=== PATIENT | female | born 1955 | race Caucasian/White ===

== ENCOUNTER 2018-09-04 02:42 | Outpatient (RCR) | payer MEDICAID, SELFPAY ==
[2018-08-28 09:56] LABS: Abs Immature Grans 0.01 k/cumm (0.0-0.09); Absolute Basophil Count 0.01 k/cumm (0.0-0.2); Absolute Eosinophil Count 0.06 k/cumm (0.0-0.7); Absolute Lymphocyte Count 1.54 k/cumm (1.2-3.4); Absolute Monocyte Count 0.21 k/cumm (0.11-0.7); Absolute Neutrophil Count 2.28 k/cumm (1.2-6.7); Basophils % 0.2; Eosinophils % 1.5; HCT 40.1 % (36.0-46.0); HGB 13.5 g/dL (12.0-15.5); Immature Grans % 0.2; Lymphocytes % 37.5; Mean Corp. HGB Concentration 33.7 g/dL (32.0-36.0); Mean Corpuscular Hemoglobin 26.6 pg (27.0-33.0); Mean Corpuscular Volume 79.1 fL (80-95); Mean Platelet Volume 11.6 fL (8.0-11.0); Monocytes % 5.1; Neutrophils % 55.5; Platelet Count 117 x1000/uL (130-400); RBC 5.07 m/cumm (4.00-5.20); RBC Distribution Width 13.9 % (11.7-14.6); White Blood Cell Count 4.11 k/cumm (4.4-10.8)
[2018-08-28 10:13] LABS: ALT 31 U/L (12-78); AST 26 U/L (15-37); Alkaline Phosphatase 160 U/L (46-116); BUN 5 mg/dL (7-18); Bilirubin, Total 0.6 mg/dL (0.2-1.0); CREATININE 0.72 mg/dL (0.55-1.02); Calcium 8.9 mg/dL (8.5-10.1); Chloride 99 mmol/L (98-107); Glucose 164 mg/dL (70-100); Potassium 4.2 mmol/L (3.5-5.1); Sodium 134 mmol/L (136-145); Total Protein 7.4 g/dL (6.4-8.2)
== END 2018-09-08 23:59 | disposition home or self-care (01) ==
LOC: INF 02:42
PROVIDERS: Visit Provider Internal Medicine Hospice and Palliative Medicine
DX: C34.91 Malignant neoplasm of unspecified part of right bronchus or lung (principal)
CPT/HCPCS: 36415; 80053; 85025

== ENCOUNTER 2018-09-11 09:19 | Outpatient (CLI) | payer MEDICAID, SELFPAY ==
[2018-09-11 09:49] LABS: Abs Immature Grans 0.02 k/cumm (0.0-0.09); Absolute Basophil Count 0.03 k/cumm (0.0-0.2); Absolute Eosinophil Count 0.03 k/cumm (0.0-0.7); Absolute Lymphocyte Count 1.45 k/cumm (1.2-3.4); Absolute Monocyte Count 0.46 k/cumm (0.11-0.7); Absolute Neutrophil Count 3.02 k/cumm (1.2-6.7); Basophils % 0.6; Eosinophils % 0.6; HCT 37.8 % (36.0-46.0); HGB 12.4 g/dL (12.0-15.5); Immature Grans % 0.4; Lymphocytes % 28.9; Mean Corp. HGB Concentration 32.8 g/dL (32.0-36.0); Mean Corpuscular Volume 82.2 fL (80-95); Mean Platelet Volume 10.4 fL (8.0-11.0); Monocytes % 9.2; Neutrophils % 60.3; RBC Distribution Width 16.9 % (11.7-14.6); White Blood Cell Count 5.01 k/cumm (4.4-10.8)
[2018-09-11 10:00] LABS: ALT 17 U/L (12-78); AST 26 U/L (15-37); Albumin 2.5 g/dL (3.4-5.0); Alkaline Phosphatase 112 U/L (46-116); Anion Gap 6.5 mmol/L (3-11); BUN 3 mg/dL (7-18); Bilirubin, Total 0.3 mg/dL (0.2-1.0); CO2 28.5 mmol/L (21.0-32.0); CREATININE 0.74 mg/dL (0.55-1.02); Calcium 9.1 mg/dL (8.5-10.1); Chloride 103 mmol/L (98-107); Glucose 196 mg/dL (70-100); Potassium 4.1 mmol/L (3.5-5.1); Sodium 138 mmol/L (136-145); Total Protein 6.6 g/dL (6.4-8.2)
[2018-09-11 10:15] LABS: Platelet Count 96 x1000/uL (130-400)
== END 2018-09-11 09:39 ==
PROVIDERS: PCP Family Medicine; Visit Provider Internal Medicine Hospice and Palliative Medicine
DX: C34.91 Malignant neoplasm of unspecified part of right bronchus or lung (principal)
CPT/HCPCS: 36415; 80053; 85025

== ENCOUNTER 2018-09-18 10:54 | Outpatient (CLI) | payer MEDICAID, SELFPAY ==
[2018-09-18 11:36] LABS: Abs Immature Grans 0.01 k/cumm (0.0-0.09); Absolute Basophil Count 0.02 k/cumm (0.0-0.2); Absolute Eosinophil Count 0.07 k/cumm (0.0-0.7); Absolute Lymphocyte Count 1.51 k/cumm (1.2-3.4); Absolute Monocyte Count 0.35 k/cumm (0.11-0.7); Absolute Neutrophil Count 2.99 k/cumm (1.2-6.7); Basophils % 0.4; Eosinophils % 1.4; HCT 38.6 % (36.0-46.0); Immature Grans % 0.2; Lymphocytes % 30.5; Mean Corp. HGB Concentration 33.7 g/dL (32.0-36.0); Mean Corpuscular Hemoglobin 27.7 pg (27.0-33.0); Mean Corpuscular Volume 82.3 fL (80-95); Monocytes % 7.1; Neutrophils % 60.4; Platelet Count 184 x1000/uL (130-400); RBC 4.69 m/cumm (4.00-5.20); RBC Distribution Width 17.9 % (11.7-14.6); White Blood Cell Count 4.95 k/cumm (4.4-10.8)
[2018-09-18 12:01] LABS: ALT 29 U/L (12-78); AST 51 U/L (15-37); Albumin 2.8 g/dL (3.4-5.0); Alkaline Phosphatase 104 U/L (46-116); Anion Gap 7.5 mmol/L (3-11); BUN 4 mg/dL (7-18); Bilirubin, Total 0.3 mg/dL (0.2-1.0); CO2 28.5 mmol/L (21.0-32.0); CREATININE 0.66 mg/dL (0.55-1.02); Calcium 9.5 mg/dL (8.5-10.1); Chloride 99 mmol/L (98-107); Glucose 200 mg/dL (70-100); LDH 229 U/L (81-234); Potassium 4.1 mmol/L (3.5-5.1); Sodium 135 mmol/L (136-145); Total Protein 7.8 g/dL (6.4-8.2)
== END 2018-09-18 11:14 ==
PROVIDERS: PCP Family Medicine; Visit Provider Nurse Practitioner Adult Health
DX: C34.91 Malignant neoplasm of unspecified part of right bronchus or lung (principal)
CPT/HCPCS: 36415; 80053; 83615; 85025

== ENCOUNTER 2018-10-02 00:50 | Outpatient (RCR) | payer MEDICAID, SELFPAY | END 2018-10-09 23:59 | disposition home or self-care (01) | LOC: INF 00:50 | PROVIDERS: Visit Provider Internal Medicine Hospice and Palliative Medicine | DX: R69 Illness, unspecified (principal) ==

== ENCOUNTER 2018-10-09 10:38 | Outpatient (CLI) | payer MEDICAID, SELFPAY ==
[2018-10-09 11:08] LABS: Abs Immature Grans 0.01 k/cumm (0.0-0.09); Absolute Basophil Count 0.02 k/cumm (0.0-0.2); Absolute Eosinophil Count 0.13 k/cumm (0.0-0.7); Absolute Lymphocyte Count 1.89 k/cumm (1.2-3.4); Absolute Monocyte Count 0.42 k/cumm (0.11-0.7); Absolute Neutrophil Count 4.42 k/cumm (1.2-6.7); Basophils % 0.3; Eosinophils % 1.9; HCT 39.8 % (36.0-46.0); HGB 13.7 g/dL (12.0-15.5); Immature Grans % 0.1; Lymphocytes % 27.4; Mean Corp. HGB Concentration 34.4 g/dL (32.0-36.0); Mean Corpuscular Hemoglobin 28.4 pg (27.0-33.0); Mean Corpuscular Volume 82.6 fL (80-95); Mean Platelet Volume 11.5 fL (8.0-11.0); Monocytes % 6.1; Neutrophils % 64.2; Platelet Count 150 x1000/uL (130-400); RBC 4.82 m/cumm (4.00-5.20); RBC Distribution Width 17.5 % (11.7-14.6); White Blood Cell Count 6.89 k/cumm (4.4-10.8)
[2018-10-09 11:13] LABS: ALT 25 U/L (12-78); AST 24 U/L (15-37); Albumin 2.9 g/dL (3.4-5.0); Alkaline Phosphatase 142 U/L (46-116); Anion Gap 9.1 mmol/L (3-11); BUN 6 mg/dL (7-18); Bilirubin, Total 0.3 mg/dL (0.2-1.0); CO2 25.9 mmol/L (21.0-32.0); CREATININE 0.64 mg/dL (0.55-1.02); Calcium 9.4 mg/dL (8.5-10.1); Chloride 101 mmol/L (98-107); Glucose 164 mg/dL (70-100); Sodium 136 mmol/L (136-145); Total Protein 7.7 g/dL (6.4-8.2)
== END 2018-10-09 10:58 ==
PROVIDERS: Internal Medicine Hospice and Palliative Medicine; PCP Family Medicine; Visit Provider Nurse Practitioner Adult Health
DX: C34.91 Malignant neoplasm of unspecified part of right bronchus or lung (principal)
CPT/HCPCS: 36415; 80053; 85025

== ENCOUNTER 2018-10-23 10:36 | Outpatient (CLI) | payer MEDICAID, SELFPAY ==
[2018-10-23 10:59] LABS: Abs Immature Grans 0.01 k/cumm (0.0-0.09); Absolute Basophil Count 0.01 k/cumm (0.0-0.2); Absolute Eosinophil Count 0.04 k/cumm (0.0-0.7); Absolute Lymphocyte Count 1.59 k/cumm (1.2-3.4); Absolute Monocyte Count 0.49 k/cumm (0.11-0.7); Basophils % 0.2; Eosinophils % 0.9; HCT 36.2 % (36.0-46.0); HGB 12.3 g/dL (12.0-15.5); Immature Grans % 0.2; Lymphocytes % 35.8; Mean Corpuscular Hemoglobin 28.2 pg (27.0-33.0); Neutrophils % 51.9; Platelet Count 153 x1000/uL (130-400); RBC 4.36 m/cumm (4.00-5.20); RBC Distribution Width 16.7 % (11.7-14.6); White Blood Cell Count 4.44 k/cumm (4.4-10.8)
[2018-10-23 11:15] LABS: ALT 28 U/L (12-78); AST 16 U/L (15-37); Albumin 2.7 g/dL (3.4-5.0); Alkaline Phosphatase 171 U/L (46-116); Anion Gap 10.1 mmol/L (3-11); BUN 5 mg/dL (7-18); Bilirubin, Total 0.3 mg/dL (0.2-1.0); CO2 27.9 mmol/L (21.0-32.0); CREATININE 0.85 mg/dL (0.55-1.02); Calcium 9.3 mg/dL (8.5-10.1); Chloride 99 mmol/L (98-107); Glucose 177 mg/dL (70-100); Potassium 3.5 mmol/L (3.5-5.1); Sodium 137 mmol/L (136-145); Total Protein 7.3 g/dL (6.4-8.2)
== END 2018-10-23 10:56 ==
PROVIDERS: PCP Family Medicine; Visit Provider Internal Medicine Hospice and Palliative Medicine
DX: C34.91 Malignant neoplasm of unspecified part of right bronchus or lung (principal); F17.210 Nicotine dependence, cigarettes, uncomplicated
CPT/HCPCS: 36415; 80053; 87505; 85025

== ENCOUNTER 2018-10-23 12:51 | Outpatient (REF) | payer MEDICAID, SELFPAY ==
[2018-10-24 11:02] LABS: Campylobacter PCR SEE COMMENTS; Salmonella PCR SEE COMMENTS; Shiga Toxin PCR SEE COMMENTS; Shigella/Enteroinvasive Ecoli SEE COMMENTS
== END 2018-10-23 13:11 ==
LOC: LBN 12:51
PROVIDERS: PCP Family Medicine; Visit Provider Nurse Practitioner Adult Health
DX: C34.31 Malignant neoplasm of lower lobe, right bronchus or lung (principal); F17.210 Nicotine dependence, cigarettes, uncomplicated
CPT/HCPCS: 87505; 87324

== ENCOUNTER 2018-10-29 11:08 | Outpatient (CLI) | payer MEDICAID, SELFPAY ==
[2018-10-29 11:28] LABS: Abs Immature Grans 0.01 k/cumm (0.0-0.09); Absolute Basophil Count 0.02 k/cumm (0.0-0.2); Absolute Eosinophil Count 0.07 k/cumm (0.0-0.7); Absolute Lymphocyte Count 2.24 k/cumm (1.2-3.4); Absolute Monocyte Count 0.48 k/cumm (0.11-0.7); Absolute Neutrophil Count 5.56 k/cumm (1.2-6.7); Basophils % 0.2; Bilirubin Negative (Negative); Blood Negative (Negative); Clarity Clear; Eosinophils % 0.8; Glucose Negative (Negative); HCT 39.1 % (36.0-46.0); HGB 13.1 g/dL (12.0-15.5); Immature Grans % 0.1; Ketones Negative (Negative); Leukocyte Esterase Negative (Negative); Lymphocytes % 26.7; Mean Corp. HGB Concentration 33.5 g/dL (32.0-36.0); Mean Corpuscular Hemoglobin 27.6 pg (27.0-33.0); Mean Corpuscular Volume 82.3 fL (80-95); Mean Platelet Volume 9.3 fL (8.0-11.0); Monocytes % 5.7; Neutrophils % 66.5; Nitrite Negative (Negative); Platelet Count 218 x1000/uL (130-400); RBC 4.75 m/cumm (4.00-5.20); RBC Distribution Width 16.3 % (11.7-14.6); Urobilinogen 0.2 EU/dL (Up TO 0.2); White Blood Cell Count 8.38 k/cumm (4.4-10.8)
[2018-10-29 11:43] LABS: ALT 25 U/L (12-78); AST 23 U/L (15-37); Albumin 2.9 g/dL (3.4-5.0); Alkaline Phosphatase 175 U/L (46-116); BUN 6 mg/dL (7-18); Bilirubin, Total 0.3 mg/dL (0.2-1.0); CREATININE 0.72 mg/dL (0.55-1.02); Calcium 9.8 mg/dL (8.5-10.1); Chloride 100 mmol/L (98-107); Glucose 165 mg/dL (70-100); Potassium 3.9 mmol/L (3.5-5.1); Sodium 137 mmol/L (136-145)
== END 2018-10-29 11:28 ==
PROVIDERS: PCP Family Medicine; Visit Provider Nurse Practitioner Adult Health
DX: C34.91 Malignant neoplasm of unspecified part of right bronchus or lung (principal); F17.210 Nicotine dependence, cigarettes, uncomplicated; E66.9 Obesity, unspecified
CPT/HCPCS: 36415; 80053; 81003; 85025

== ENCOUNTER 2018-11-13 09:43 | Outpatient (CLI) | payer MEDICAID, SELFPAY ==
[2018-11-13 10:03] LABS: Abs Immature Grans 0.01 k/cumm (0.0-0.09); Absolute Basophil Count 0.01 k/cumm (0.0-0.2); Absolute Eosinophil Count 0.06 k/cumm (0.0-0.7); Absolute Lymphocyte Count 1.47 k/cumm (1.2-3.4); Absolute Monocyte Count 0.27 k/cumm (0.11-0.7); Absolute Neutrophil Count 4.07 k/cumm (1.2-6.7); Basophils % 0.2; HCT 37.7 % (36.0-46.0); HGB 12.6 g/dL (12.0-15.5); Immature Grans % 0.2; Mean Corp. HGB Concentration 33.4 g/dL (32.0-36.0); Mean Corpuscular Hemoglobin 27.8 pg (27.0-33.0); Monocytes % 4.6; Platelet Count 106 x1000/uL (130-400); RBC 4.54 m/cumm (4.00-5.20); White Blood Cell Count 5.89 k/cumm (4.4-10.8)
[2018-11-13 10:28] LABS: ALT 19 U/L (12-78); AST 19 U/L (15-37); Alkaline Phosphatase 184 U/L (46-116); Anion Gap 8.2 mmol/L (3-11); BUN 7 mg/dL (7-18); Bilirubin, Total 0.3 mg/dL (0.2-1.0); CO2 26.8 mmol/L (21.0-32.0); Calcium 9.4 mg/dL (8.5-10.1); Chloride 100 mmol/L (98-107); Glucose 255 mg/dL (70-100); Potassium 4.5 mmol/L (3.5-5.1); Sodium 135 mmol/L (136-145); Total Protein 7.3 g/dL (6.4-8.2)
== END 2018-11-13 10:03 ==
PROVIDERS: PCP Family Medicine; Visit Provider Nurse Practitioner Adult Health
DX: C34.91 Malignant neoplasm of unspecified part of right bronchus or lung (principal)
CPT/HCPCS: 36415; 80053; 85025

== ENCOUNTER 2018-11-27 09:20 | Outpatient (CLI) | payer MEDICAID, SELFPAY ==
[2018-11-27 09:41] LABS: Abs Immature Grans 0.02 k/cumm (0.0-0.09); Absolute Basophil Count 0.02 k/cumm (0.0-0.2); Absolute Eosinophil Count 0.06 k/cumm (0.0-0.7); Absolute Lymphocyte Count 1.52 k/cumm (1.2-3.4); Absolute Monocyte Count 0.35 k/cumm (0.11-0.7); Absolute Neutrophil Count 6.59 k/cumm (1.2-6.7); Basophils % 0.2; Eosinophils % 0.7; HCT 37.5 % (36.0-46.0); HGB 12.4 g/dL (12.0-15.5); Immature Grans % 0.2; Lymphocytes % 17.8; Mean Corp. HGB Concentration 33.1 g/dL (32.0-36.0); Mean Corpuscular Hemoglobin 27.7 pg (27.0-33.0); Mean Corpuscular Volume 83.7 fL (80-95); Mean Platelet Volume 11.2 fL (8.0-11.0); Monocytes % 4.1; Platelet Count 110 x1000/uL (130-400); RBC 4.48 m/cumm (4.00-5.20); RBC Distribution Width 17.5 % (11.7-14.6); White Blood Cell Count 8.56 k/cumm (4.4-10.8)
[2018-11-27 09:54] LABS: ALT 26 U/L (12-78); AST 17 U/L (15-37); Albumin 2.9 g/dL (3.4-5.0); Alkaline Phosphatase 204 U/L (46-116); Anion Gap 8.6 mmol/L (3-11); BUN 8 mg/dL (7-18); Bilirubin, Total 0.3 mg/dL (0.2-1.0); CO2 27.4 mmol/L (21.0-32.0); CREATININE 0.71 mg/dL (0.55-1.02); Calcium 9.1 mg/dL (8.5-10.1); Chloride 100 mmol/L (98-107); Glucose 250 mg/dL (70-100); Potassium 4.2 mmol/L (3.5-5.1); Sodium 136 mmol/L (136-145); Total Protein 7.2 g/dL (6.4-8.2)
== END 2018-11-27 09:40 ==
PROVIDERS: PCP Family Medicine; Visit Provider Nurse Practitioner Adult Health
DX: C34.91 Malignant neoplasm of unspecified part of right bronchus or lung (principal)
CPT/HCPCS: 36415; 80053; 85025

== ENCOUNTER 2018-11-27 14:26 | Outpatient (CLI) | payer MEDICAID, SELFPAY ==
--- NOTE | 2018-11-27 14:26 | DI.RAD_ITS ---
SYMPTOM/DIAGNOSIS: NON SMALL CELL LUNG CA, C34.91, ON CHEMO, RT SIDED CHEST PAIN AND RIB PAIN FRONTAL AND LATERAL CHEST: No priors. Heart size and pulmonary vasculature are within normal limits. There is diffuse prominence of the interstitium bilaterally, predominantly involving the lower lobes. No focal consolidating infiltrate, effusion or pneumothorax is identified. The bones appear intact. No evidence of a displaced rib fracture is seen. IMPRESSION: 1. No acute pulmonary process. No evidence of an acute displaced rib fracture. 2. Diffuse prominent interstitial disease. This may be chronic and reflect pulmonary fibrosis. The possibility of an acute interstitial process such as edema or pneumonia cannot be excluded. Please correlate clinically.
== END 2018-11-27 14:46 ==
PROVIDERS: PCP Family Medicine; Visit Provider Registered Nurse Oncology
DX: C34.91 Malignant neoplasm of unspecified part of right bronchus or lung (principal); R07.89 Other chest pain; Z92.21 Personal history of antineoplastic chemotherapy; J84.10 Pulmonary fibrosis, unspecified
CPT/HCPCS: 71046

== ENCOUNTER 2018-12-11 09:19 | Outpatient (CLI) | payer MEDICAID, SELFPAY ==
[2018-12-11 09:41] LABS: Abs Immature Grans 0.02 k/cumm (0.0-0.09); Absolute Basophil Count 0.03 k/cumm (0.0-0.2); Absolute Eosinophil Count 0.05 k/cumm (0.0-0.7); Absolute Lymphocyte Count 1.46 k/cumm (1.2-3.4); Absolute Monocyte Count 0.28 k/cumm (0.11-0.7); Absolute Neutrophil Count 6.58 k/cumm (1.2-6.7); Basophils % 0.4; Eosinophils % 0.6; HCT 37.2 % (36.0-46.0); HGB 12.2 g/dL (12.0-15.5); Immature Grans % 0.2; Lymphocytes % 17.3; Mean Corp. HGB Concentration 32.8 g/dL (32.0-36.0); Mean Corpuscular Hemoglobin 27.9 pg (27.0-33.0); Mean Corpuscular Volume 84.9 fL (80-95); Mean Platelet Volume 11.2 fL (8.0-11.0); Monocytes % 3.3; Neutrophils % 78.2; RBC 4.38 m/cumm (4.00-5.20); RBC Distribution Width 17.1 % (11.7-14.6); White Blood Cell Count 8.42 k/cumm (4.4-10.8)
[2018-12-11 09:59] LABS: ALT 27 U/L (12-78); AST 15 U/L (15-37); Albumin 2.9 g/dL (3.4-5.0); Alkaline Phosphatase 213 U/L (46-116); Anion Gap 6.7 mmol/L (3-11); BUN 6 mg/dL (7-18); Bilirubin, Total 0.4 mg/dL (0.2-1.0); CO2 28.3 mmol/L (21.0-32.0); CREATININE 0.69 mg/dL (0.55-1.02); Calcium 9.1 mg/dL (8.5-10.1); Chloride 101 mmol/L (98-107); Glucose 270 mg/dL (70-100); LDH 175 U/L (81-234); Potassium 4.3 mmol/L (3.5-5.1); Sodium 136 mmol/L (136-145); Total Protein 7.3 g/dL (6.4-8.2)
[2018-12-11 10:07] LABS: Platelet Count 97 x1000/uL (130-400)
== END 2018-12-11 09:39 ==
PROVIDERS: PCP Family Medicine; Visit Provider Nurse Practitioner Adult Health
DX: C34.91 Malignant neoplasm of unspecified part of right bronchus or lung (principal)
CPT/HCPCS: 36415; 80053; 83615; 85025

== ENCOUNTER 2018-12-17 09:45 | Outpatient (CLI) | payer MEDICAID, SELFPAY ==
[2018-12-17 10:09] LABS: Abs Immature Grans 0.01 k/cumm (0.0-0.09); Absolute Basophil Count 0.02 k/cumm (0.0-0.2); Absolute Eosinophil Count 0.04 k/cumm (0.0-0.7); Absolute Lymphocyte Count 1.34 k/cumm (1.2-3.4); Absolute Monocyte Count 0.33 k/cumm (0.11-0.7); Absolute Neutrophil Count 4.04 k/cumm (1.2-6.7); Basophils % 0.3; Eosinophils % 0.7; HCT 36.1 % (36.0-46.0); Immature Grans % 0.2; Lymphocytes % 23.2; Mean Corp. HGB Concentration 33.2 g/dL (32.0-36.0); Mean Corpuscular Hemoglobin 28.5 pg (27.0-33.0); Mean Corpuscular Volume 85.7 fL (80-95); Mean Platelet Volume 9.6 fL (8.0-11.0); Monocytes % 5.7; Neutrophils % 69.9; Platelet Count 132 x1000/uL (130-400); RBC 4.21 m/cumm (4.00-5.20); RBC Distribution Width 17.6 % (11.7-14.6); White Blood Cell Count 5.78 k/cumm (4.4-10.8)
[2018-12-17 10:37] LABS: ALT 35 U/L (12-78); AST 29 U/L (15-37); Alkaline Phosphatase 188 U/L (46-116); BUN 6 mg/dL (7-18); Bilirubin, Total 0.3 mg/dL (0.2-1.0); CREATININE 0.77 mg/dL (0.55-1.02); Calcium 9.1 mg/dL (8.5-10.1); Chloride 99 mmol/L (98-107); Glucose 320 mg/dL (70-100); Potassium 4.2 mmol/L (3.5-5.1); Sodium 135 mmol/L (136-145); Total Protein 7.3 g/dL (6.4-8.2)
== END 2018-12-17 10:05 ==
PROVIDERS: PCP Family Medicine; Visit Provider Registered Nurse Oncology
DX: C34.91 Malignant neoplasm of unspecified part of right bronchus or lung (principal)
CPT/HCPCS: 36415; 80053; 85025

== ENCOUNTER 2018-12-31 02:04 | Outpatient (RCR) | payer MEDICAID, SELFPAY ==
[2018-12-31] MEDS: Normal Saline Flush 10 ML SYR IVP (09:14)
[2018-12-31 09:26] LABS: Abs Immature Grans 0.01 k/cumm (0.0-0.09); Absolute Basophil Count 0.01 k/cumm (0.0-0.2); Absolute Eosinophil Count 0.04 k/cumm (0.0-0.7); Absolute Lymphocyte Count 1.32 k/cumm (1.2-3.4); Absolute Monocyte Count 0.32 k/cumm (0.11-0.7); Absolute Neutrophil Count 2.08 k/cumm (1.2-6.7); Basophils % 0.3; Eosinophils % 1.1; HCT 35.9 % (36.0-46.0); HGB 11.7 g/dL (12.0-15.5); Immature Grans % 0.3; Lymphocytes % 34.9; Mean Corp. HGB Concentration 32.6 g/dL (32.0-36.0); Mean Corpuscular Volume 85.9 fL (80-95); Monocytes % 8.5; Neutrophils % 54.9; Platelet Count 148 x1000/uL (130-400); RBC 4.18 m/cumm (4.00-5.20); RBC Distribution Width 17.2 % (11.7-14.6); White Blood Cell Count 3.78 k/cumm (4.4-10.8)
[2018-12-31 09:50] LABS: ALT 24 U/L (12-78); AST 16 U/L (15-37); Albumin 2.9 g/dL (3.4-5.0); Alkaline Phosphatase 161 U/L (46-116); Anion Gap 8.8 mmol/L (3-11); BUN 5 mg/dL (7-18); Bilirubin, Total 0.3 mg/dL (0.2-1.0); CO2 27.2 mmol/L (21.0-32.0); CREATININE 0.79 mg/dL (0.55-1.02); Chloride 100 mmol/L (98-107); Glucose 285 mg/dL (70-100); LDH 203 U/L (81-234); Potassium 4.3 mmol/L (3.5-5.1); Sodium 136 mmol/L (136-145); Total Protein 7.1 g/dL (6.4-8.2)
== END 2019-01-09 23:59 | disposition home or self-care (01) ==
LOC: INF 02:04
PROVIDERS: PCP Family Medicine; Visit Provider Registered Nurse Oncology
DX: C34.91 Malignant neoplasm of unspecified part of right bronchus or lung (principal); Z45.2 Encounter for adjustment and management of vascular access device
CPT/HCPCS: 36591; 80053; 83615; 85025

== ENCOUNTER 2019-01-28 01:18 | Outpatient (RCR) | payer MEDICARE, MEDICAID, SELFPAY ==
[2019-01-14 09:21] LABS: Abs Immature Grans 0.01 k/cumm (0.0-0.09); Absolute Basophil Count 0.01 k/cumm (0.0-0.2); Absolute Eosinophil Count 0.05 k/cumm (0.0-0.7); Absolute Lymphocyte Count 1.34 k/cumm (1.2-3.4); Absolute Monocyte Count 0.33 k/cumm (0.11-0.7); Absolute Neutrophil Count 4.83 k/cumm (1.2-6.7); Basophils % 0.2; Eosinophils % 0.8; HCT 35.4 % (36.0-46.0); HGB 11.6 g/dL (12.0-15.5); Immature Grans % 0.2; Lymphocytes % 20.4; Mean Corp. HGB Concentration 32.8 g/dL (32.0-36.0); Mean Corpuscular Volume 85.3 fL (80-95); Mean Platelet Volume 10.8 fL (8.0-11.0); Neutrophils % 73.4; Platelet Count 121 x1000/uL (130-400); RBC 4.15 m/cumm (4.00-5.20); RBC Distribution Width 17.6 % (11.7-14.6); White Blood Cell Count 6.57 k/cumm (4.4-10.8)
[2019-01-14] MEDS: Normal Saline Flush 10 ML SYR IVP (09:21)
[2019-01-14 09:46] LABS: ALT 28 U/L (14-59); AST 19 U/L (15-37); Albumin 2.8 g/dL (3.4-5.0); Alkaline Phosphatase 185 U/L (46-116); Anion Gap 8.7 mmol/L (3-11); BUN 5 mg/dL (7-18); Bilirubin, Total 0.3 mg/dL (0.2-1.0); CO2 26.3 mmol/L (21.0-32.0); CREATININE 0.75 mg/dL (0.55-1.02); Calcium 8.8 mg/dL (8.5-10.1); Chloride 100 mmol/L (98-107); Glucose 314 mg/dL (70-100); LDH 170 U/L (81-234); Potassium 4.3 mmol/L (3.5-5.1); Sodium 135 mmol/L (136-145); Total Protein 6.9 g/dL (6.4-8.2)
[2019-01-28] MEDS: Normal Saline Flush 10 ML SYR IVP (09:10)
[2019-01-28 09:25] LABS: Abs Immature Grans 0.01 k/cumm (0.0-0.09); Absolute Basophil Count 0.01 k/cumm (0.0-0.2); Absolute Eosinophil Count 0.06 k/cumm (0.0-0.7); Absolute Lymphocyte Count 1.35 k/cumm (1.2-3.4); Absolute Monocyte Count 0.54 k/cumm (0.11-0.7); Absolute Neutrophil Count 1.72 k/cumm (1.2-6.7); Basophils % 0.3; Eosinophils % 1.6; HCT 34.6 % (36.0-46.0); HGB 11.4 g/dL (12.0-15.5); Immature Grans % 0.3; Lymphocytes % 36.6; Mean Corp. HGB Concentration 32.9 g/dL (32.0-36.0); Mean Corpuscular Hemoglobin 27.9 pg (27.0-33.0); Mean Corpuscular Volume 84.6 fL (80-95); Mean Platelet Volume 10.2 fL (8.0-11.0); Monocytes % 14.6; Neutrophils % 46.6; Platelet Count 143 x1000/uL (130-400); RBC 4.09 m/cumm (4.00-5.20); RBC Distribution Width 17.2 % (11.7-14.6); White Blood Cell Count 3.69 k/cumm (4.4-10.8)
[2019-01-28 09:34] LABS: ALT 19 U/L (14-59); AST 13 U/L (15-37); Albumin 2.9 g/dL (3.4-5.0); Alkaline Phosphatase 154 U/L (46-116); Anion Gap 9.2 mmol/L (3-11); BUN 5 mg/dL (7-18); Bilirubin, Total 0.4 mg/dL (0.2-1.0); CO2 25.8 mmol/L (21.0-32.0); CREATININE 0.72 mg/dL (0.55-1.02); Calcium 8.9 mg/dL (8.5-10.1); Chloride 100 mmol/L (98-107); Glucose 277 mg/dL (70-100); LDH 158 U/L (81-234); Potassium 4.2 mmol/L (3.5-5.1); Sodium 135 mmol/L (136-145); Total Protein 6.8 g/dL (6.4-8.2)
== END 2019-02-08 23:59 | disposition home or self-care (01) ==
LOC: INF 01:18
PROVIDERS: PCP Family Medicine; Visit Provider Registered Nurse Oncology
DX: C34.91 Malignant neoplasm of unspecified part of right bronchus or lung (principal); Z45.2 Encounter for adjustment and management of vascular access device
CPT/HCPCS: 36591; 80053; 83615; 85025

== ENCOUNTER 2019-01-28 13:28 | Emergency (ER) | payer MEDICARE, MEDICAID, SELFPAY ==
[2019-01-28] VITALS (27 sets, daily range): BP systolic 124–156; BP diastolic 56–87; PULSE 96–105; RESP 11–25; TEMP 36.4–36.5; O2SAT 93–99
--- NOTE | 2019-01-28 13:47 | DI.CT_ITS ---
EXAM: CT HEAD WO CLINICAL HISTORY: lung cancer, dizziness. TECHNIQUE: Noncontrast cranial CT was performed. COMPARISON: No exams were available for comparison FINDINGS: Ventricular system is normal in appearance. No evidence of acute intracranial hemorrhage, mass effec t or midline shift. The orbital and temporal bone structures appear intact. Visualized paranasal si nuses and mastoid air cells are clear. IMPRESSION: Negative noncontrast cranial CT
--- NOTE | 2019-01-28 13:47 | DI.RAD_ITS ---
EXAM: XR CHEST 2V PA AND LATERAL INDICATION: cough, lung cancer. COMPARISON: XR CHEST 2V PA AND LATERAL from 11/27/2018 TECHNIQUE: 2D digital imaging was performed. FINDINGS: Patient reportedly has a history of lung carcinoma. Cardiac size is at the upper limits of normal. There is a Port-A-Cath in position via right subclavian route. Diffuse interstitial radiodensities w ere noted on prior study of November 27. On today's examination, there appear to be slightly increased patchy radiodensities bilaterally, the possibility of multifocal pneumonia is raised; progression of lung carcinoma with lymphangitic spread of tumor not excluded. Appropriate follow-up studies reques ruthie. Examination was discussed with Dr. Restrepo in the ER
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
[2019-01-28] MEDS: Normal Saline 1,000 ML 150 ML IV (14:26)
[2019-01-28 15:02] LABS: Absolute Eosinophil Count 0.01 k/cumm (0.0-0.7); Absolute Lymphocyte Count 0.45 k/cumm (1.2-3.4); Absolute Monocyte Count 0.09 k/cumm (0.11-0.7); Absolute Neutrophil Count 1.51 k/cumm (1.2-6.7); Eosinophils % 0.5; HGB 12.1 g/dL (12.0-15.5); Lymphocytes % 21.8; Mean Corp. HGB Concentration 32.7 g/dL (32.0-36.0); Mean Corpuscular Hemoglobin 27.4 pg (27.0-33.0); Mean Corpuscular Volume 83.7 fL (80-95); Mean Platelet Volume 10.6 fL (8.0-11.0); Monocytes % 4.4; Neutrophils % 73.3; Platelet Count 138 x1000/uL (130-400); RBC 4.42 m/cumm (4.00-5.20); RBC Distribution Width 17.4 % (11.7-14.6); White Blood Cell Count 2.06 k/cumm (4.4-10.8)
[2019-01-28 15:15] LABS: ALT 21 U/L (14-59); AST 17 U/L (15-37); Albumin 3.1 g/dL (3.4-5.0); Alkaline Phosphatase 168 U/L (46-116); Anion Gap 10.5 mmol/L (3-11); BUN 5 mg/dL (7-18); Bilirubin, Total 0.7 mg/dL (0.2-1.0); CO2 24.5 mmol/L (21.0-32.0); CREATININE 0.76 mg/dL (0.55-1.02); Calcium 8.9 mg/dL (8.5-10.1); Chloride 100 mmol/L (98-107); Glucose 272 mg/dL (70-100); Magnesium 1.5 mg/dL (1.8-2.4); Potassium 4.1 mmol/L (3.5-5.1); Sodium 135 mmol/L (136-145); Total Protein 7.4 g/dL (6.4-8.2)
[2019-01-28 15:16] LABS: Troponin I < 0.05 ng/mL (0.00-0.06)
[2019-01-28] MEDS: MAGNESIUM SULFATE 1 GM/100 ML BAG IVPB (15:32)
[2019-01-28 16:36] LABS: Lactate 2.6 mmol/L (0.6-1.4)
[2019-01-28 16:49] LABS: Bilirubin Negative (Negative); Blood Negative (Negative); Clarity Clear (Clear); Glucose 500 mg/dL (Negative); Ketones Negative (Negative); Leukocyte Esterase Negative (Negative); Nitrite Negative (Negative); Specific Gravity <= 1.005 (1.005-1.025); Urobilinogen 0.2 EU/dL (Up TO 0.2)
[2019-01-28] MEDS: cefTRIAXone 1 GM/50 ML BAG IVPB (17:45)
[2019-01-28] MEDS: Heparin 500 UNITS/5 ML SYRINGE (18:48)
== END 2019-01-28 18:45 | disposition home or self-care (01) ==
PROVIDERS: Emergency Provider Emergency Medicine; PCP Family Medicine
DX: R42 Dizziness and giddiness (principal); R53.81 Other malaise; R11.0 Nausea; C34.91 Malignant neoplasm of unspecified part of right bronchus or lung; Z79.899 Other long term (current) drug therapy; Z95.828 Presence of other vascular implants and grafts; I10 Essential (primary) hypertension; F17.210 Nicotine dependence, cigarettes, uncomplicated
CPT/HCPCS: 36410; 36415; 36591; 80053; 87040; 93005; 96361; 96365; 96367; 99285; 70450; 71046; 81003; 83605; 83615; 83735; 84484; 85025; 93010; J0696; J3475

== ENCOUNTER 2019-11-23 01:37 | Outpatient (CLI) | payer MEDICARE, SELFPAY ==
--- NOTE | 2019-11-23 | DI.MRI_ITS ---
EXAM: MR BRAIN WO/W CLINICAL HISTORY: STEREOTACTIC RADIOSURGERY PLANNING, RT OCCIPITAL BRAIN METS. TECHNIQUE: Multiplanar multisequence MRI was performed. COMPARISON: MR MRI BRAIN WWO from 11/08/2019 FINDINGS: MR examination brain was performed according usual protocol with additional post contrast axial coron al T1 images. Examination is compared with recent MRI from [facility] November 07 previous ly described right occipital lobe enhancing mass is again seen, this is changed little in appearance comparison with the prior study, 32x25 x 22 millimeters on the current examination as compared to rep orted 30 x 23 x 22 millimeters on the previous examination. Note is again made of multiple areas of abnormal signal in periventricular white matter consistent wi th microvascular ischemic change seen on T2 weighted and FLAIR imaging, unchanged from prior study. There is a new finding of asmall focus of diffusion restriction with corresponding ADC map abnormalit y consistent with a left caudate nucleus infarct. No other significant new findings. IMPRESSION: Question of minimal interval increase in size of right occipital presumed metastatic lesion since exa mination of November 07. New finding of apparent tiny left caudate nucleus infarct. DATA REPOSITORY:
[2019-11-23 10:53] LABS: Absolute Basophil Count 0.01 k/cumm (0.0-0.2); Absolute Lymphocyte Count 1.94 k/cumm (1.2-3.4); Absolute Monocyte Count 0.32 k/cumm (0.11-0.7); Absolute Neutrophil Count 3.29 k/cumm (1.2-6.7); Basophils % 0.2; Eosinophils % 1.8; HCT 39.7 % (36.0-46.0); HGB 13.5 g/dL (12.0-15.5); Lymphocytes % 34.3; Mean Corpuscular Hemoglobin 27.1 pg (27.0-33.0); Mean Corpuscular Volume 79.7 fL (80-95); Mean Platelet Volume 10.5 fL (8.0-11.0); Monocytes % 5.7; Platelet Count 152 x1000/uL (130-400); RBC 4.98 m/cumm (4.00-5.20); RBC Distribution Width 15.4 % (11.7-14.6); White Blood Cell Count 5.66 k/cumm (4.4-10.8)
[2019-11-23 11:07] LABS: ALT 20 U/L (14-59); AST 20 U/L (15-37); Albumin 2.6 g/dL (3.4-5.0); Alkaline Phosphatase 148 U/L (46-116); Anion Gap 5.8 mmol/L (3-11); BUN 6 mg/dL (7-18); Bilirubin, Total 0.4 mg/dL (0.2-1.0); CO2 30.2 mmol/L (21.0-32.0); CREATININE 0.76 mg/dL (0.55-1.02); Calcium 9.1 mg/dL (8.5-10.1); Chloride 97 mmol/L (98-107); Glucose 266 mg/dL (74-106); LDH 203 U/L (81-234); Potassium 4.4 mmol/L (3.5-5.1); Sodium 133 mmol/L (136-145); Total Protein 7.1 g/dL (6.4-8.2)
[2019-11-23] MEDS: Gadoterate meglumine 20 ML VIAL IVP (11:15)
[2019-11-23] MEDS: Normal Saline Flush 10 ML SYR IV (11:16)
== END 2019-11-23 01:57 ==
PROVIDERS: PCP Family Medicine; Visit Provider Internal Medicine Hospice and Palliative Medicine
DX: C34.31 Malignant neoplasm of lower lobe, right bronchus or lung (principal); C79.31 Secondary malignant neoplasm of brain; R90.82 White matter disease, unspecified
CPT/HCPCS: 70553; 80053; 83615; 85025

== ENCOUNTER 2019-12-24 12:48 | Outpatient (REF) | payer MEDICARE, SELFPAY ==
[2019-12-24 12:32] LABS: Bilirubin Negative (Negative); Blood Negative (Negative); Clarity Clear (Clear); Glucose 250 mg/dL (Negative); Ketones Negative (Negative); Leukocyte Esterase Moderate (Negative); Nitrite Negative (Negative); Urobilinogen 0.2 EU/dL (Up TO 0.2)
[2019-12-24 12:40] LABS: WBC >50 HPF (0-5)
[2019-12-24 12:41] LABS: Bacteria Many HPF (Negative); C & S Indicated? Yes; Casts Negative LPF (Negative); Crystals Negative HPF (Negative); Epithelial Cells Rare HPF (Negative); Mucus Negative (Negative); RBC Negative HPF (0-2)
== END 2019-12-24 13:08 ==
LOC: LBN 12:48
PROVIDERS: PCP Family Medicine; Visit Provider Nurse Practitioner Adult Health
DX: C34.90 Malignant neoplasm of unspecified part of unspecified bronchus or lung (principal); C79.31 Secondary malignant neoplasm of brain; N30.00 Acute cystitis without hematuria
CPT/HCPCS: 87077; 81003; 81015; 87086; 87186

== ENCOUNTER 2019-12-31 04:36 | Outpatient (RCR) | payer MEDICARE, SELFPAY ==
[2019-12-24] MEDS: Normal Saline Flush 10 ML SYR IVP (09:22)
[2019-12-24 09:33] LABS: Abs Immature Grans 0.02 10^3/uL (0.0-0.06); Absolute Basophil Count 0.02 10^3/uL (0.0-0.2); Absolute Eosinophil Count 0.12 10^3/uL (0.0-0.7); Absolute Lymphocyte Count 2.12 10^3/uL (1.2-3.4); Absolute Monocyte Count 0.51 10^3/uL (0.1-0.8); Absolute Neutrophil Count 5.24 10^3/uL (1.2-6.7); Basophils % 0.2; Eosinophils % 1.5; HCT 38.2 % (36.0-46.0); HGB 12.6 g/dL (11.2-15.7); Immature Grans % 0.2; Lymphocytes % 26.4; MCH 26.4 pg (27.0-33.0); MCV 80.1 fL (80-95); MPV 9.9 fL (8.0-11.0); Monocytes % 6.4; Neutrophils % 65.3; Nucleated RBC 0 %; Platelet Count 183 10^3/uL (130-400); RBC 4.77 10^6/uL (3.93-5.22); RDW 15.3 % (11.7-14.6); RDW-SD 44.2 fL; WBC 8.03 10^3/uL (4.4-10.8)
[2019-12-24 09:53] LABS: ALT 17 U/L (14-59); AST 16 U/L (15-37); Albumin 2.7 g/dL (3.4-5.0); Alkaline Phosphatase 146 U/L (46-116); Anion Gap 5.4 mmol/L (3-11); BUN 6 mg/dL (7-18); Bilirubin, Total 0.5 mg/dL (0.2-1.0); CO2 28.6 mmol/L (21.0-32.0); CREATININE 0.81 mg/dL (0.55-1.02); Calcium 9.3 mg/dL (8.5-10.1); Chloride 97 mmol/L (98-107); Glucose 260 mg/dL (74-106); Sodium 131 mmol/L (136-145); Total Protein 7.3 g/dL (6.4-8.2)
[2019-12-31] MEDS: Normal Saline Flush 10 ML SYR IVP (12:05)
[2019-12-31 12:13] LABS: Abs Immature Grans 0.01 10^3/uL (0.0-0.06); Absolute Basophil Count 0.03 10^3/uL (0.0-0.2); Absolute Eosinophil Count 0.07 10^3/uL (0.0-0.7); Absolute Lymphocyte Count 1.81 10^3/uL (1.2-3.4); Absolute Monocyte Count 0.14 10^3/uL (0.1-0.8); Absolute Neutrophil Count 2.02 10^3/uL (1.2-6.7); Basophils % 0.7; Eosinophils % 1.7; HCT 34.7 % (36.0-46.0); HGB 11.5 g/dL (11.2-15.7); Immature Grans % 0.2; Lymphocytes % 44.4; MCH 26.2 pg (27.0-33.0); MCHC 33.1 % (32.0-36.0); MPV 11.3 fL (8.0-11.0); Monocytes % 3.4; Neutrophils % 49.6; Nucleated RBC 0 %; Platelet Count 185 10^3/uL (130-400); RBC 4.39 10^6/uL (3.93-5.22); RDW-SD 43.2 fL; WBC 4.08 10^3/uL (4.4-10.8)
[2019-12-31 12:27] LABS: ALT 18 U/L (14-59); AST 21 U/L (15-37); Albumin 2.6 g/dL (3.4-5.0); Alkaline Phosphatase 124 U/L (46-116); BUN 6 mg/dL (7-18); Bilirubin, Total 0.4 mg/dL (0.2-1.0); CREATININE 0.74 mg/dL (0.55-1.02); Calcium 9.2 mg/dL (8.5-10.1); Chloride 94 mmol/L (98-107); Glucose 278 mg/dL (74-106); Potassium 4.5 mmol/L (3.5-5.1); Sodium 129 mmol/L (136-145); Total Protein 7.1 g/dL (6.4-8.2)
== END 2020-01-10 23:59 | disposition home or self-care (01) ==
LOC: INF 04:36
PROVIDERS: PCP Family Medicine; Visit Provider Nurse Practitioner Family
DX: C79.31 Secondary malignant neoplasm of brain (principal); C34.31 Malignant neoplasm of lower lobe, right bronchus or lung; Z45.2 Encounter for adjustment and management of vascular access device
CPT/HCPCS: 36591; 80053; 85025

== ENCOUNTER 2020-01-26 01:05 | Outpatient (CLI) | payer MEDICARE, SELFPAY ==
--- NOTE | 2020-01-26 | DI.MRI_ITS ---
EXAM: MR BRAIN WO/W CLINICAL HISTORY: RT OCCITPITAL BRAIN METS FROM LUNG CA,S/P RADIATION,F/U POST TREATMENT. TECHNIQUE: Multiplanar multisequence MRI was performed. COMPARISON: MR MR BRAIN WO/W from 11/23/2019 MR MR BRAIN WO/W from 11/23/2019 FINDINGS: MR examination of the brain was performed according to the usual protocol with additional post contra st axial and coronal T1 weighted imaging. Previously described presumed metastatic lesion the right occipital lobe seen most recent scan of November 22 has significantly decreased in size, this now measu res 19 x 13 millimeters in diameter as compared to 33 x 25 millimeters in diameter on the prior study . No new lesion identified in the brain. The orbital and temporal bone structures appear intact. Diff usion-weighted imaging is within normal limits with no evidence of infarction. Susceptibility weight ed imaging shows no evidence of intra cranial hemorrhage. IMPRESSION: Significant interval decrease in size of the right occipital presumed metastatic lesion since November 22 scan. No new lesions identified. DATA REPOSITORY:
[2020-01-26] MEDS: Normal Saline Flush 10 ML SYR IVP (13:49)
[2020-01-26] MEDS: Gadoterate meglumine 20 ML VIAL 10 ML IVP (13:50)
== END 2020-01-26 01:25 ==
PROVIDERS: PCP Family Medicine; Visit Provider Radiology Radiation Oncology
DX: G93.89 Other specified disorders of brain (principal); C34.90 Malignant neoplasm of unspecified part of unspecified bronchus or lung; C79.31 Secondary malignant neoplasm of brain; C34.31 Malignant neoplasm of lower lobe, right bronchus or lung; E06.4 Drug-induced thyroiditis; Z45.2 Encounter for adjustment and management of vascular access device
CPT/HCPCS: 70553; 96523

== ENCOUNTER 2020-01-31 01:22 | Outpatient (RCR) | payer MEDICARE, SELFPAY ==
[2020-01-14] MEDS: Normal Saline Flush 10 ML SYR IVP (12:23)
[2020-01-14 12:36] LABS: Abs Immature Grans 0.04 10^3/uL (0.0-0.06); Absolute Basophil Count 0.02 10^3/uL (0.0-0.2); Absolute Lymphocyte Count 1.42 10^3/uL (1.2-3.4); Absolute Monocyte Count 0.44 10^3/uL (0.1-0.8); Absolute Neutrophil Count 5.33 10^3/uL (1.2-6.7); Basophils % 0.3; HCT 31.7 % (36.0-46.0); HGB 10.2 g/dL (11.2-15.7); Immature Grans % 0.6; Lymphocytes % 19.6; MCH 26.3 pg (27.0-33.0); MCHC 32.2 % (32.0-36.0); MCV 81.7 fL (80-95); MPV 11.2 fL (8.0-11.0); Monocytes % 6.1; Neutrophils % 73.4; Nucleated RBC 0 %; Platelet Count 122 10^3/uL (130-400); RBC 3.88 10^6/uL (3.93-5.22); RDW 17.5 % (11.7-14.6); RDW-SD 48.5 fL; WBC 7.25 10^3/uL (4.4-10.8)
[2020-01-14 13:00] LABS: ALT 17 U/L (14-59); AST 26 U/L (15-37); Albumin 2.2 g/dL (3.4-5.0); Alkaline Phosphatase 143 U/L (46-116); Anion Gap 5.3 mmol/L (3-11); BUN 5 mg/dL (7-18); Bilirubin, Total 0.4 mg/dL (0.2-1.0); CO2 28.7 mmol/L (21.0-32.0); CREATININE 0.74 mg/dL (0.55-1.02); Calcium 8.8 mg/dL (8.5-10.1); Chloride 98 mmol/L (98-107); FREE T4 1.14 ng/dL (0.76-1.46); Glucose 267 mg/dL (74-106); Potassium 4.1 mmol/L (3.5-5.1); Sodium 132 mmol/L (136-145); TSH 1.16 uIU/mL (0.36-3.74); Total Protein 6.3 g/dL (6.4-8.2)
[2020-01-24] MEDS: Normal Saline Flush 10 ML SYR IVP (07:27)
[2020-01-24 07:34] LABS: Abs Immature Grans 0.02 10^3/uL (0.0-0.06); Absolute Basophil Count 0.05 10^3/uL (0.0-0.2); Absolute Eosinophil Count 0.14 10^3/uL (0.0-0.7); Absolute Lymphocyte Count 1.65 10^3/uL (1.2-3.4); Absolute Monocyte Count 0.39 10^3/uL (0.1-0.8); Absolute Neutrophil Count 4.16 10^3/uL (1.2-6.7); Basophils % 0.8; Eosinophils % 2.2; HCT 33.9 % (36.0-46.0); HGB 10.9 g/dL (11.2-15.7); Immature Grans % 0.3; Lymphocytes % 25.7; MCH 26.5 pg (27.0-33.0); MCHC 32.2 % (32.0-36.0); MCV 82.5 fL (80-95); MPV 10.7 fL (8.0-11.0); Monocytes % 6.1; Neutrophils % 64.9; Nucleated RBC 0 %; Platelet Count 201 10^3/uL (130-400); RBC 4.11 10^6/uL (3.93-5.22); RDW 18.1 % (11.7-14.6); RDW-SD 52.8 fL; WBC 6.41 10^3/uL (4.4-10.8)
[2020-01-24 07:58] LABS: ALT 20 U/L (14-59); AST 20 U/L (15-37); Albumin 2.6 g/dL (3.4-5.0); Alkaline Phosphatase 142 U/L (46-116); Anion Gap 8.1 mmol/L (3-11); BUN 6 mg/dL (7-18); Bilirubin, Total 0.4 mg/dL (0.2-1.0); CO2 26.9 mmol/L (21.0-32.0); CREATININE 0.86 mg/dL (0.55-1.02); Calcium 9.2 mg/dL (8.5-10.1); Chloride 98 mmol/L (98-107); FREE T4 1.07 ng/dL (0.76-1.46); Glucose 307 mg/dL (74-106); Potassium 3.9 mmol/L (3.5-5.1); Sodium 133 mmol/L (136-145); TSH 2.22 uIU/mL (0.36-3.74); Total Protein 6.9 g/dL (6.4-8.2)
[2020-01-26] MEDS: Normal Saline Flush 10 ML SYR IVP (14:25)
[2020-01-26] MEDS: Heparin 500 UNITS/5 ML SYRINGE IV (14:25)
[2020-01-31] MEDS: Normal Saline Flush 10 ML SYR IVP (10:02)
[2020-01-31 10:20] LABS: Abs Immature Grans 0.03 10^3/uL (0.0-0.06); Absolute Basophil Count 0.03 10^3/uL (0.0-0.2); Absolute Lymphocyte Count 1.64 10^3/uL (1.2-3.4); Absolute Monocyte Count 0.45 10^3/uL (0.1-0.8); Absolute Neutrophil Count 4.26 10^3/uL (1.2-6.7); Basophils % 0.5; HCT 36.7 % (36.0-46.0); HGB 11.7 g/dL (11.2-15.7); Immature Grans % 0.5; Lymphocytes % 24.8; MCH 26.5 pg (27.0-33.0); MCHC 31.9 % (32.0-36.0); MPV 10.8 fL (8.0-11.0); Monocytes % 6.8; Neutrophils % 64.4; Nucleated RBC 0 %; Platelet Count 190 10^3/uL (130-400); RBC 4.42 10^6/uL (3.93-5.22); RDW 17.2 % (11.7-14.6); RDW-SD 51.7 fL; WBC 6.61 10^3/uL (4.4-10.8)
[2020-01-31 10:32] LABS: ALT 18 U/L (14-59); AST 16 U/L (15-37); Albumin 2.7 g/dL (3.4-5.0); Alkaline Phosphatase 153 U/L (46-116); Anion Gap 5.9 mmol/L (3-11); BUN 7 mg/dL (7-18); Bilirubin, Total 0.5 mg/dL (0.2-1.0); CO2 28.1 mmol/L (21.0-32.0); CREATININE 0.85 mg/dL (0.55-1.02); Calcium 9.1 mg/dL (8.5-10.1); Chloride 98 mmol/L (98-107); Glucose 317 mg/dL (74-106); Potassium 4.2 mmol/L (3.5-5.1); Sodium 132 mmol/L (136-145); Total Protein 7.1 g/dL (6.4-8.2)
== END 2020-02-09 23:59 | disposition home or self-care (01) ==
LOC: INF 01:22
PROVIDERS: PCP Family Medicine; Visit Provider Nurse Practitioner Family
DX: E06.4 Drug-induced thyroiditis (principal); C79.31 Secondary malignant neoplasm of brain; C34.31 Malignant neoplasm of lower lobe, right bronchus or lung; Z45.2 Encounter for adjustment and management of vascular access device
CPT/HCPCS: 36591; 80053; 96523; 84439; 84443; 85025; 86301

== ENCOUNTER 2020-03-07 01:21 | Outpatient (RCR) | payer MEDICARE, SELFPAY ==
[2020-02-14 09:17] LABS: Absolute Basophil Count 0.02 10^3/uL (0.0-0.2); Absolute Eosinophil Count 0.04 10^3/uL (0.0-0.7); Absolute Lymphocyte Count 1.35 10^3/uL (1.2-3.4); Absolute Monocyte Count 0.39 10^3/uL (0.1-0.8); Absolute Neutrophil Count 1.65 10^3/uL (1.2-6.7); Basophils % 0.6; Eosinophils % 1.2; HCT 34.2 % (36.0-46.0); Lymphocytes % 39.1; MCH 26.1 pg (27.0-33.0); MCHC 32.2 % (32.0-36.0); MPV 10.3 fL (8.0-11.0); Monocytes % 11.3; Neutrophils % 47.8; Nucleated RBC 0 %; Platelet Count 134 10^3/uL (130-400); RBC 4.22 10^6/uL (3.93-5.22); RDW 16.4 % (11.7-14.6); RDW-SD 47.8 fL; WBC 3.45 10^3/uL (4.4-10.8)
[2020-02-14 09:29] LABS: ALT 15 U/L (14-59); AST 16 U/L (15-37); Albumin 2.6 g/dL (3.4-5.0); Alkaline Phosphatase 151 U/L (46-116); Anion Gap 6.6 mmol/L (3-11); BUN 6 mg/dL (7-18); Bilirubin, Total 0.4 mg/dL (0.2-1.0); CO2 27.4 mmol/L (21.0-32.0); CREATININE 0.85 mg/dL (0.55-1.02); Calcium 8.8 mg/dL (8.5-10.1); Chloride 99 mmol/L (98-107); Glucose 247 mg/dL (74-106); Potassium 4.1 mmol/L (3.5-5.1); Sodium 133 mmol/L (136-145); Total Protein 6.9 g/dL (6.4-8.2)
[2020-02-14] MEDS: Normal Saline Flush 10 ML SYR IVP (09:51)
[2020-03-07] MEDS: Normal Saline Flush 10 ML SYR IVP (11:22)
[2020-03-07 11:31] LABS: Abs Immature Grans 0.02 10^3/uL (0.0-0.06); Absolute Basophil Count 0.04 10^3/uL (0.0-0.2); Absolute Eosinophil Count 0.07 10^3/uL (0.0-0.7); Absolute Lymphocyte Count 2.45 10^3/uL (1.2-3.4); Absolute Monocyte Count 0.55 10^3/uL (0.1-0.8); Absolute Neutrophil Count 7.46 10^3/uL (1.2-6.7); Basophils % 0.4; Eosinophils % 0.7; HCT 37.9 % (36.0-46.0); HGB 11.9 g/dL (11.2-15.7); Immature Grans % 0.2; Lymphocytes % 23.1; MCH 24.8 pg (27.0-33.0); MCHC 31.4 % (32.0-36.0); MCV 79.1 fL (80-95); MPV 10.3 fL (8.0-11.0); Monocytes % 5.2; Neutrophils % 70.4; Nucleated RBC 0 %; Platelet Count 198 10^3/uL (130-400); RBC 4.79 10^6/uL (3.93-5.22); RDW 17.1 % (11.7-14.6); RDW-SD 48.5 fL; WBC 10.59 10^3/uL (4.4-10.8)
[2020-03-07 11:56] LABS: ALT 19 U/L (14-59); AST 19 U/L (15-37); Albumin 2.8 g/dL (3.4-5.0); Alkaline Phosphatase 152 U/L (46-116); BUN 8 mg/dL (7-18); Bilirubin, Total 0.4 mg/dL (0.2-1.0); CREATININE 0.87 mg/dL (0.55-1.02); Calcium 9.2 mg/dL (8.5-10.1); Chloride 96 mmol/L (98-107); FREE T4 1.07 ng/dL (0.76-1.46); Glucose 236 mg/dL (74-106); LDH 161 U/L (81-234); Potassium 4.2 mmol/L (3.5-5.1); Sodium 126 mmol/L (136-145); TSH 1.87 uIU/mL (0.36-3.74); Total Protein 7.2 g/dL (6.4-8.2)
== END 2020-03-11 23:59 | disposition home or self-care (01) ==
LOC: INF 01:21
PROVIDERS: Internal Medicine Hospice and Palliative Medicine; PCP Family Medicine; Visit Provider Nurse Practitioner Family
DX: C34.91 Malignant neoplasm of unspecified part of right bronchus or lung (principal); E06.4 Drug-induced thyroiditis; C79.31 Secondary malignant neoplasm of brain; Z45.2 Encounter for adjustment and management of vascular access device
CPT/HCPCS: 36591; 80053; 83615; 84439; 84443; 85025

== ENCOUNTER 2020-04-10 02:04 | Outpatient (RCR) | payer MEDICARE, SELFPAY ==
[2020-03-21] MEDS: Normal Saline Flush 10 ML SYR IVP (11:45)
[2020-03-21 12:14] LABS: Abs Immature Grans 0.01 10^3/uL (0.0-0.06); Absolute Basophil Count 0.02 10^3/uL (0.0-0.2); Absolute Eosinophil Count 0.08 10^3/uL (0.0-0.7); Absolute Lymphocyte Count 2.22 10^3/uL (1.2-3.4); Absolute Monocyte Count 0.64 10^3/uL (0.1-0.8); Absolute Neutrophil Count 2.01 10^3/uL (1.2-6.7); Basophils % 0.4; Eosinophils % 1.6; HCT 35.8 % (36.0-46.0); HGB 11.3 g/dL (11.2-15.7); Immature Grans % 0.2; Lymphocytes % 44.6; MCH 24.5 pg (27.0-33.0); MCHC 31.6 % (32.0-36.0); MCV 77.5 fL (80-95); MPV 10.2 fL (8.0-11.0); Monocytes % 12.9; Neutrophils % 40.3; Nucleated RBC 0 %; Platelet Count 168 10^3/uL (130-400); RBC 4.62 10^6/uL (3.93-5.22); RDW 17.8 % (11.7-14.6); RDW-SD 49.1 fL; WBC 4.98 10^3/uL (4.4-10.8)
[2020-03-21 12:20] LABS: ALT 17 U/L (14-59); AST 17 U/L (15-37); Albumin 2.9 g/dL (3.4-5.0); Alkaline Phosphatase 137 U/L (46-116); Anion Gap 4.2 mmol/L (3-11); BUN 6 mg/dL (7-18); Bilirubin, Total 0.3 mg/dL (0.2-1.0); CO2 29.8 mmol/L (21.0-32.0); CREATININE 0.81 mg/dL (0.55-1.02); Calcium 9.5 mg/dL (8.5-10.1); Chloride 96 mmol/L (98-107); Glucose 183 mg/dL (74-106); Potassium 4.3 mmol/L (3.5-5.1); Sodium 130 mmol/L (136-145); Total Protein 7.1 g/dL (6.4-8.2)
[2020-04-03] MEDS: Normal Saline Flush 10 ML SYR IVP (10:00)
[2020-04-03 10:29] LABS: Abs Immature Grans 0.01 10^3/uL (0.0-0.06); Absolute Basophil Count 0.02 10^3/uL (0.0-0.2); Absolute Eosinophil Count 0.06 10^3/uL (0.0-0.7); Absolute Lymphocyte Count 1.98 10^3/uL (1.2-3.4); Absolute Neutrophil Count 1.43 10^3/uL (1.2-6.7); Basophils % 0.5; Eosinophils % 1.5; HCT 35.2 % (36.0-46.0); HGB 11.3 g/dL (11.2-15.7); Immature Grans % 0.3; Lymphocytes % 49.5; MCH 24.8 pg (27.0-33.0); MCHC 32.1 % (32.0-36.0); MCV 77.2 fL (80-95); MPV 10.7 fL (8.0-11.0); Monocytes % 12.5; Neutrophils % 35.7; Nucleated RBC 0 %; Platelet Count 178 10^3/uL (130-400); RBC 4.56 10^6/uL (3.93-5.22); RDW 18.3 % (11.7-14.6); RDW-SD 50.2 fL
[2020-04-03 10:53] LABS: ALT 19 U/L (14-59); AST 20 U/L (15-37); Albumin 2.8 g/dL (3.4-5.0); Alkaline Phosphatase 135 U/L (46-116); Anion Gap 6.6 mmol/L (3-11); BUN 9 mg/dL (7-18); Bilirubin, Total 0.4 mg/dL (0.2-1.0); CO2 27.4 mmol/L (21.0-32.0); CREATININE 0.85 mg/dL (0.55-1.02); Chloride 97 mmol/L (98-107); FREE T4 1.05 ng/dL (0.76-1.46); Glucose 206 mg/dL (74-106); LDH 170 U/L (81-234); Potassium 4.2 mmol/L (3.5-5.1); Sodium 131 mmol/L (136-145); TSH 1.75 uIU/mL (0.36-3.74)
[2020-04-10] MEDS: Normal Saline Flush 10 ML SYR IVP (12:20)
[2020-04-10 13:07] LABS: Abs Immature Grans 0.02 10^3/uL (0.0-0.06); Absolute Basophil Count 0.05 10^3/uL (0.0-0.2); Absolute Eosinophil Count 0.06 10^3/uL (0.0-0.7); Absolute Lymphocyte Count 2.42 10^3/uL (1.2-3.4); Absolute Monocyte Count 0.57 10^3/uL (0.1-0.8); Absolute Neutrophil Count 5.84 10^3/uL (1.2-6.7); Basophils % 0.6; Eosinophils % 0.7; HGB 11.6 g/dL (11.2-15.7); Immature Grans % 0.2; MCH 24.6 pg (27.0-33.0); MCHC 32.2 % (32.0-36.0); MCV 76.3 fL (80-95); MPV 10.4 fL (8.0-11.0); Monocytes % 6.4; Neutrophils % 65.1; Nucleated RBC 0 %; Platelet Count 188 10^3/uL (130-400); RBC 4.72 10^6/uL (3.93-5.22); RDW 18.6 % (11.7-14.6); RDW-SD 49.5 fL; WBC 8.96 10^3/uL (4.4-10.8)
[2020-04-10 13:24] LABS: ALT 20 U/L (14-59); AST 22 U/L (15-37); Albumin 2.9 g/dL (3.4-5.0); Alkaline Phosphatase 133 U/L (46-116); Anion Gap 4.2 mmol/L (3-11); BUN 8 mg/dL (7-18); Bilirubin, Total 0.4 mg/dL (0.2-1.0); CO2 27.8 mmol/L (21.0-32.0); CREATININE 0.74 mg/dL (0.55-1.02); Calcium 9.2 mg/dL (8.5-10.1); Chloride 96 mmol/L (98-107); FREE T4 1.19 ng/dL (0.76-1.46); Glucose 185 mg/dL (74-106); LDH 158 U/L (81-234); Sodium 128 mmol/L (136-145); TSH 1.69 uIU/mL (0.36-3.74); Total Protein 7.2 g/dL (6.4-8.2)
== END 2020-04-10 23:59 | disposition home or self-care (01) ==
LOC: INF 02:04
PROVIDERS: Internal Medicine Hospice and Palliative Medicine; PCP Family Medicine; Visit Provider Family Medicine
DX: C79.31 Secondary malignant neoplasm of brain (principal); E06.4 Drug-induced thyroiditis; C34.31 Malignant neoplasm of lower lobe, right bronchus or lung; Z79.899 Other long term (current) drug therapy; C77.9 Secondary and unspecified malignant neoplasm of lymph node, unspecified; Z45.2 Encounter for adjustment and management of vascular access device
CPT/HCPCS: 36591; 80053; 83615; 84439; 84443; 85025

== ENCOUNTER 2020-04-27 00:35 | Outpatient (CLI) | payer MEDICARE, SELFPAY ==
--- NOTE | 2020-04-27 | DI.CT_ITS ---
EXAM: CT CHEST W CLINICAL HISTORY: RT LUNG CA,C34.91,BRAIN METS,C79.31,METASTATIC TO LYMPH NODES,C77.9. TECHNIQUE: Multi planar reconstructions were performed. CONTRAST MATERIAL: Omnipaque 350; 75 cc COMPARISON: CT CT CHEST W LEB from 02/24/2020 FINDINGS: CHEST: LUNGS:. Advanced COPD emphysematous changes again noted as well as bilateral pulmonary interstitial disease. Right lower lobe pleural based infiltrate adjacent to the major fissure has slightly slight ly decreased in size. Large partially confluent bulla in the right lower lobe is unchanged. Small n odular infiltrate at the junction of the right upper and right middle lobes is unchanged. No new nod ules in left lung. No pleural effusions on either side. No new focal significant focal findings in the trachea and mainstem bronchi. MEDIASTINUM: Right thyroid lobe nodule is unchanged. Pretracheal medial to azygos arch prominent lym ph nodes again noted, unchanged. Subcarinal adenopathy is unchanged. Right hilar lymph node is unch anged. CARDIAC: Heart size is normal. There is no pericardial effusion.Caliber of the ascending thoracic ao rta and aortic arch are normal. Descending thoracic aorta exhibits upper normal diameter is atherosc lerotic. No evidence of dissection. VISUALIZED UPPER ABDOMEN:There are no significant adrenal masses. OSSEOUS: No significant osseous lesions.. IMPRESSION: 1. Advanced emphysematous disease and interstitial pulmonary disease, as previously present. No pleu ral effusions. 2. Right lower lobe pleural based infiltrate is slightly decreased in size. Nodular density at the j unction of the right upper and right middle lobes appears unchanged. There are no obvious new lung n odules. 3. Intrathoracic adenopathy is unchanged. RADIATION DOSE DELIVERED: 607.68mGy.cm Total DLP DATA REPOSITORY: All CT scans at this facility are submitted to the National Radiology Data Registry (NRDR) Dose Index Registry (DIR) with the [employer] (A[employer]). RADIATION OPTIMIZATION: All CT scans at this facility use at least one of these dose optimization te chniques: automated exposure control; mA and/or kV adjustment per patient size (includes targeted exa ms where dose is matched to clinical indication); or iterative reconstruction.
[2020-04-27] MEDS: Omnipaque 350 MG/ML 100 ML BTL IJ (14:52)
[2020-04-27] MEDS: Normal Saline - Diluent 50 ML VIAL IV (14:53)
[2020-04-27] MEDS: Normal Saline Flush 10 ML SYR IVP (14:53)
== END 2020-04-27 00:55 ==
PROVIDERS: PCP Family Medicine; Visit Provider Family Medicine
DX: R91.8 Other nonspecific abnormal finding of lung field (principal); C34.91 Malignant neoplasm of unspecified part of right bronchus or lung; C77.1 Secondary and unspecified malignant neoplasm of intrathoracic lymph nodes; C79.31 Secondary malignant neoplasm of brain; J44.9 Chronic obstructive pulmonary disease, unspecified
CPT/HCPCS: 96523; 71260; J3490

== ENCOUNTER 2020-05-01 09:00 | Outpatient (RCR) | payer MEDICARE, SELFPAY ==
[2020-04-27] MEDS: Heparin 500 UNITS/5 ML SYRINGE IV (13:58)
[2020-04-27] MEDS: Normal Saline Flush 10 ML SYR IVP (13:58)
[2020-05-01] MEDS: Normal Saline Flush 10 ML SYR IVP (09:20)
[2020-05-01 09:24] LABS: Abs Immature Grans 0.03 10^3/uL (0.0-0.06); Absolute Basophil Count 0.03 10^3/uL (0.0-0.2); Absolute Eosinophil Count 0.08 10^3/uL (0.0-0.7); Absolute Lymphocyte Count 2.34 10^3/uL (1.2-3.4); Absolute Monocyte Count 0.48 10^3/uL (0.1-0.8); Absolute Neutrophil Count 6.26 10^3/uL (1.2-6.7); Basophils % 0.3; Eosinophils % 0.9; HCT 35.6 % (36.0-46.0); HGB 11.6 g/dL (11.2-15.7); Immature Grans % 0.3; Lymphocytes % 25.4; MCH 24.3 pg (27.0-33.0); MCHC 32.6 % (32.0-36.0); MCV 74.6 fL (80-95); MPV 10.4 fL (8.0-11.0); Monocytes % 5.2; Neutrophils % 67.9; Nucleated RBC 0 %; Platelet Count 197 10^3/uL (130-400); RBC 4.77 10^6/uL (3.93-5.22); RDW 19.3 % (11.7-14.6); RDW-SD 50.8 fL; WBC 9.22 10^3/uL (4.4-10.8)
[2020-05-01 09:40] LABS: Anisocytosis 1+; Diff Comment RBC Morph Reviewed; Hypochromasia 2+; Microcytosis 2+; Poikilocytes 1+
[2020-05-01 09:54] LABS: ALT 18 U/L (14-59); AST 17 U/L (15-37); Albumin 2.8 g/dL (3.4-5.0); Alkaline Phosphatase 140 U/L (46-116); Anion Gap 5.5 mmol/L (3-11); BUN 7 mg/dL (7-18); Bilirubin, Total 0.4 mg/dL (0.2-1.0); CO2 26.5 mmol/L (21.0-32.0); CREATININE 0.78 mg/dL (0.55-1.02); Calcium 9.1 mg/dL (8.5-10.1); Chloride 95 mmol/L (98-107); FREE T4 1.09 ng/dL (0.76-1.46); Glucose 192 mg/dL (74-106); Potassium 4.2 mmol/L (3.5-5.1); Sodium 127 mmol/L (136-145); TSH 2.71 uIU/mL (0.36-3.74); Total Protein 7.1 g/dL (6.4-8.2)
[2020-05-01 17:10] LABS: LDH 171 U/L (81-234)
== END 2020-05-11 23:59 | disposition home or self-care (01) ==
LOC: INF 09:00
PROVIDERS: PCP Family Medicine; Visit Provider Nurse Practitioner Adult Health
DX: C34.91 Malignant neoplasm of unspecified part of right bronchus or lung (principal); C79.31 Secondary malignant neoplasm of brain; C77.9 Secondary and unspecified malignant neoplasm of lymph node, unspecified; Z45.2 Encounter for adjustment and management of vascular access device; E06.4 Drug-induced thyroiditis
CPT/HCPCS: 36591; 80053; 96523; 83615; 84439; 84443; 85025